=== PATIENT | female | born 1985 | race Caucasian/White ===

== ENCOUNTER 2017-08-13 23:18 | Emergency (ER) | payer BC, OTHER ==
--- NOTE | 2017-08-14 00:57 | ED ---
General Adult HPI - General Chief complaint: Vaginal Bleeding Stated complaint: poss miscarriage Time Seen by Provider: 08/14/17 00:47 Source: patient, RN notes reviewed Mode of arrival: ambulatory Limitations: no limitations - History of Present Illness Initial comments: This is a 32-year-old A2 female who presents to the emergency department with chief complaint of possible miscarriage. Patient states that she is currently 10 weeks . She states that she is from [place] and sees an BILLING MANAGER there. She states that she was visiting some friends earlier today and began spotting. She states that she is now bleeding more. She states that she bled through a panty liner. She also admits to lower abdominal cramping. Denies fevers or chills, nausea or vomiting, diarrhea or constipation , dysuria or hematuria. She states that she did have an ultrasound performed at her BILLING MANAGER's office last Wednesday and everything appeared normal. - Related Data Home Medications Medication Instructions Recorded Confirmed Cephalexin [Keflex] 500 mg PO TID 03/11/14 03/11/14 Triamcinolone 0.1% Cream [Kenalog] 1 applicate TOPICAL DIRECTED PRN 03/11/14 03/11/14 Previous Rx's Medication Instructions Recorded predniSONE 20 mg PO TID #15 tab 03/11/14 Allergies Allergy/AdvReac Type Severity Reaction Status Date / Time No Known Allergies Allergy Verified 08/13/17 23:24 Review of Systems ROS Statement: Those systems with pertinent positive or pertinent negative responses have been documented in the HPI. ROS Other: All systems not noted in ROS Statement are negative. Past Medical History Past Medical History: No Reported History History of Any Multi-Drug Resistant Organisms: None Reported Past Surgical History: Tonsillectomy Past Psychological History: No Psychological Hx Reported Smoking Status: Never smoker Past Alcohol Use History: None Reported Past Drug Use History: None Reported General Exam - General Exam Comments Initial Comments: General: Awake and alert, well-developed; in no apparent distress. HEENT: Head atraumatic, normocephalic. Pupils are equal, round and reactive to light. Extraocular movements intact. Oropharynx moist without erythema or exudate. Neck: Supple. Normal ROM. Cardiovascular: Regular rate and rhythm. No murmurs, rubs or gallops. Chest symmetrical. Respiratory: Lungs clear to auscultation bilaterally. No wheezes, rales or rhonchi. Normal respiratory effort with no use of accessory muscles. Abdomen: Soft, non-distended. Mild tenderness on palpation of lower abdomen. No rigidity, rebound or guarding. Musculoskeletal: Normal ROM, no tenderness bilateral upper and lower extremities. Ambulating normally. Skin: [place], warm and dry without rashes or lesions. Neurological: Alert and oriented x3. CN II-XII grossly intact. Speech is fluent and answers are appropriate. No focal neuro deficits. Psychiatric: Normal mood and affect. No overt signs of depression or anxiety noted. Limitations: no limitations Course Vital Signs 08/13/17 08/14/17 23:22 01:53 Temperature 98.5 F 98.2 F Pulse Rate 79 72 Respiratory 18 16 Rate Blood Pressure 126/76 122/74 O2 Sat by Pulse 100 98 Oximetry Medical Decision Making - Medical Decision Making This is a 32-year-old female who presents to the emergency department with chief complaint of vaginal bleeding. Patient states that she is approximately 10 weeks . CBC and CMP were unremarkable. Ultrasound was obtained and revealed a viable IUP at gestational age of 9 weeks and 3 days. It also revealed evidence for a very small subchorionic hemorrhage. Patient's blood type is A negative. Patient given a dose of Rhogam. Serum hCG is 63,170. Patient will be given a lab slip to have serum hCG repeated in 48 hours. Patient is in agreement with this plan and voices understanding. She is in no acute distress and will be discharged home at this time. All questions answered. - Lab Data Result diagrams: 08/14/17 01:00 08/14/17 01:00 Lab Results 08/14/17 08/14/17 08/14/17 Range/Units 01:00 01:00 01:00 WBC 7.3 (3.8-10.6) k/uL RBC 4.13 (3.80-5.40) m/uL Hgb 12.6 (11.4-16.0) gm/dL Hct 36.4 (34.0-46.0) % MCV 88.1 (80.0-100.0) fL MCH 30.4 (25.0-35.0) pg MCHC 34.5 (31.0-37.0) g/dL RDW 12.6 (11.5-15.5) % Plt Count 239 (150-450) k/uL Neutrophils % 64 % Lymphocytes % 28 % Monocytes % 5 % Eosinophils % 1 % Basophils % 0 % Neutrophils # 4.7 (1.3-7.7) k/uL Lymphocytes # 2.0 (1.0-4.8) k/uL Monocytes # 0.4 (0-1.0) k/uL Eosinophils # 0.1 (0-0.7) k/uL Basophils # 0.0 (0-0.2) k/uL Sodium 138 (137-145) mmol/L Potassium 4.0 (3.5-5.1) mmol/L Chloride 104 (98-107) mmol/L Carbon Dioxide 22 (22-30) mmol/L Anion Gap 12 mmol/L BUN 17 (7-17) mg/dL Creatinine 0.60 (0.52-1.04) mg/dL Est GFR (CKD-EPI)AfAm >90 (>60 ml/min/1.73 sqM) Est GFR (CKD-EPI)NonAf >90 (>60 ml/min/1.73 sqM) Glucose 86 (74-99) mg/dL Calcium 9.3 (8.4-10.2) mg/dL Total Bilirubin 0.2 (0.2-1.3) mg/dL AST 22 (14-36) U/L ALT 39 (9-52) U/L Alkaline Phosphatase 46 (38-126) U/L Total Protein 6.3 (6.3-8.2) g/dL Albumin 4.0 (3.5-5.0) g/dL HCG, Quant 77427.4 mIU/mL Blood Type A Negative Blood Type Recheck No - Radiology Data Radiology results: report reviewed Fetus obstetrical ultrasound impression: The ultrasound gestational age is 9 weeks 3 days. There is evidence for some very small subchorionic hemorrhage. Disposition Clinical Impression: Threatened , Subchorionic bleed Disposition: HOME SELF-CARE Condition: Good Instructions: Subchorionic Hemorrhage (ED), Threatened Miscarriage (ED) Additional Instructions: Please have serum hCG levels repeated in 48 hours. Please follow up with primary care provider within 1-2 days. Return to emergency department if symptoms should worsen or any concerns arise. Is patient prescribed a controlled substance at d/c from ED?: No Referrals: None,Stated [Primary Care Provider] - 1-2 days Time of Disposition: 02:53
[2017-08-14 01:09] LABS: Basophils % (A) 0 %; Eosinophils # (A) 0.1 k/uL (0-0.7); Eosinophils % (A) 1 %; HCT 36.4 % (34.0-46.0); HGB 12.6 gm/dL (11.4-16.0); Lymphocytes % (A) 28 %; MCH 30.4 pg (25.0-35.0); MCHC 34.5 g/dL (31.0-37.0); MCV 88.1 fL (80.0-100.0); Mean Platelet Volume 6.9; Monocytes # (A) 0.4 k/uL (0-1.0); Monocytes % (A) 5 %; Neutrophils # (A) 4.7 k/uL (1.3-7.7); Neutrophils % (A) 64 %; Platelet Count 239 k/uL (150-450); RBC 4.13 m/uL (3.80-5.40); RDW 12.6 % (11.5-15.5); WBC 7.3 k/uL (3.8-10.6)
[2017-08-14 01:21] LABS: ALT 39 U/L (9-52); AST 22 U/L (14-36); Alkaline Phosphatase 46 U/L (38-126); Anion Gap 12 mmol/L; Blood Urea Nitrogen 17 mg/dL (7-17); Calcium 9.3 mg/dL (8.4-10.2); Carbon Dioxide 22 mmol/L (22-30); Chloride 104 mmol/L (98-107); Glucose 86 mg/dL (74-99); Sodium 138 mmol/L (137-145); Total Bilirubin 0.2 mg/dL (0.2-1.3); Total Protein 6.3 g/dL (6.3-8.2)
--- NOTE | 2017-08-14 01:42 | US ---
EXAMINATION TYPE: Transabdominal DATE OF EXAM: 06/22/17 COMPARISON: NONE CLINICAL HISTORY: vag bleed 10 wks . Spotting today increased by the evening, no pain, EXAM PERFORMED: OBTA EXAM MEASUREMENTS: GESTATIONAL AGE / DATING Physician Established: Not yet established Dates by LMP: (10 weeks/1 days) EDC: 03/11/2018 Dates by First Scan: TALENT DEVELOPMENT SPECIALIST Dates by Current Scan for: (9 weeks/3 days) EDC: 03/16/2018 MATERNAL ANATOMY Uterus: 10.8 x 7.9 x 6.9cm Right Ovary: 3.6 x 3.4 x 3.2cm Left Ovary: 2.2 x 1.9 x 2.2cm Post CDS / Adnexa: wnl Presence of free fluid: no Presence of corpus luteal cyst: yes, right ovary = 2.2cm Presence of subchorionic bleed: possible, small = 2.9cm GESTATION / SURVEY CRL: 2.7cm (9 weeks/3 days) MSD: wnl Yolk Sac (normal less than 6mm): 0.4cm Heart Rate: 163 bpm Rhythm: Normal IUP: Viable IUP Date of LMP: 06/04/2017 Beta HcG (if available): pending IMPRESSION: The ultrasound gestational age is 9 weeks 3 days. There is evidence for some very small subchorionic hemorrhage.
[2017-08-14 01:55] VITALS: BP 122/74; PULSE 72; RESP 16; TEMP 98.2
[2017-08-14 02:10] LABS: HCG,Quantitative Serum 63170.4 mIU/mL
[2017-08-14] MEDS ORDERED: Rhogam IMMUNE GLOBULIN 1,500 UNIT/1 ML IM ONE (02:33)
== END 2017-08-14 03:53 | disposition home or self-care (01) ==
LOC: EC 23:18
DX: O20.0 Threatened abortion (principal); Z3A.10 10 weeks gestation of pregnancy
CPT/HCPCS: 36415; 86900; 86901; 80053; 85025; 86850; 84702; 76801; 99284; 96372; J2791

== ENCOUNTER → 2019-02-09 | Outpatient (CLI) | payer OTHER ==
--- NOTE | 2019-02-09 12:56 | US ---
EXAMINATION TYPE: Transabdominal DATE OF EXAM: 02/09/2019 12:27 PM COMPARISON: NONE CLINICAL HISTORY: O46.91 BLEEDING/SPOTTING. Dates. EXAM PERFORMED: Transabdominal (TA) EXAM MEASUREMENTS: GESTATIONAL AGE / DATING Dates by LMP: (7 weeks/4 days) EDC: 09/24/2019 Dates by First Scan: No previous this is first scan Dates by Current Scan for: (7 weeks/4 days) EDC: 09/24/2019 MATERNAL ANATOMY Uterus: 10.0 x 8.0 x 6.4 cm Right Ovary: 3.1 x 1.7 x 1.3 cm Left Ovary: 3.5 x 1.7 x 2.2 cm Post CDS / Adnexa: no free fluid Presence of free fluid: no Presence of corpus luteal cyst: left ovarian lesion visualized = Presence of subchorionic bleed: no GESTATION / SURVEY CRL: 1.4 cm (7 weeks/4 days) MSD: Seen, not measured Yolk Sac (normal less than 6mm): 3.0 mm Heart Rate: 161 bpm Rhythm: Normal IUP: Viable IUP Date of LMP: 12/18/2018, Beta HcG (if available): Not available at this time IMPRESSION: Single live IUP measuring 7 weeks 4 days.
== END | disposition home or self-care (01) ==
LOC: RADUSWWP 11:39
PROVIDERS: ATTEND Obstetrics & Gynecology
DX: O46.91 Antepartum hemorrhage, unspecified, first trimester (principal); Z3A.01 Less than 8 weeks gestation of pregnancy
CPT/HCPCS: 76801

== ENCOUNTER → 2019-05-03 | Outpatient (CLI) | payer OTHER ==
--- NOTE | 2019-05-03 15:07 | US ---
EXAMINATION TYPE: US OB anatomy transabd DATE OF EXAM: 05/03/2019 COMPARISON: HISTORY: O36.62X0 Large for dates Anatomy TECHNIQUE: Transabdominal (TA) EXAM MEASUREMENTS: GESTATIONAL AGE / DATING Physician Established: (19 weeks/3 days) EDC: 09/24/2019 Dates by First Scan: (19 weeks/3 days) EDC: 09/24/2019 Dates by Current Scan for: (19 weeks/1 days) EDC: 09/26/2019 SURVEY IUP: Single PLACENTA: Posterior PREVIA: No previa ANDREW: 13.7 cm Normal CERVICAL LENGTH (transabdominal: norm > 3.0cm): 4.2 cm BIOMETRY LIE: Transverse lie with head maternal Right BPD: 4.2 cm 18 weeks / 6 days HC: 16.2 cm 19 weeks / 0 days AC: 14.2 cm 19 weeks / 4 days FL: 3.2 cm 20 weeks / 0 days ESTIMATED WEIGHT IN GRAMS: 306.7 grams ESTIMATED WEIGHT IN LBS/OZ: 0 lbs. 11 oz. WEIGHT PERCENTAGE BASED ON ESTABLISHED DATE: 60.6 % HC/AC: 1.1 Normal FL/AC: 22.6 HEART RATE: 136 bpm RHYTHM: Normal ANATOMY SEEN (within normal limits): * Lateral Vent (< 1 cm) 0.7 cm * Cisterna Magna (< 1.1 cm) 0.3 cm * Nuchal Fold (< 0.6 cm) 0.4 cm * Cerebellum (varies with age) 1.9 cm Choroid Plexus (bilateral) Midline Falx Cavus Septi Pellucidi Four Chamber Heart Outflow tracts: LVOT/RVOT Stomach Situs Nose / Lips Diaphragm Kidneys (bilateral) Bladder Cord Insert Three Vessel Cord Longitudinal Spine Transverse Spine Arms (bilateral) Legs (bilateral) Feet ANATOMY SEEN (does not appear within normal limits): None ANATOMY NOT SEEN: None Single live IUP measuring 19 weeks 1 day IMPRESSION: Single live intrauterine with a sonographic age of 19 weeks and 1 day and estim ated date of delivery of 09/26/2019, concordant with physician established dates. Unremarkable anatomy scan.
== END | disposition home or self-care (01) ==
LOC: RADUSWWP 12:00
PROVIDERS: ATTEND Obstetrics & Gynecology
DX: O36.62X0 Maternal care for excessive fetal growth, second trimester, not applicable or unspecified (principal); Z3A.19 19 weeks gestation of pregnancy
CPT/HCPCS: 76811

== ENCOUNTER → 2019-05-22 | Outpatient (CLI) | payer OTHER | END | disposition home or self-care (01) | LOC: LABWHC1 10:57 | PROVIDERS: ATTEND Obstetrics & Gynecology | DX: O46.92 Antepartum hemorrhage, unspecified, second trimester (principal); Z3A.00 Weeks of gestation of pregnancy not specified | CPT/HCPCS: 36415; 86850; 86870; 86880; 86886; 86900; 86901 ==

== ENCOUNTER 2019-09-19 05:44 | Inpatient (IN) | payer OTHER ==
[2019-09-19] MEDS ORDERED: CARBOPROST TROMETHAMINE 250 MCG/ML 1 ML AMP IM PRN ×2 (06:03→09:16)
[2019-09-19] MEDS ORDERED: METHYLERGONOVINE 0.2 MG/ML 1 ML AMP IM PRN ×2 (06:03→09:16)
[2019-09-19] MEDS ORDERED: LIDOCAINE 0.5% (PF) 5 MG/ML (50 ML SDV) SQ PRN ×2 (06:03→09:16)
[2019-09-19] MEDS ORDERED: OXYTOCIN 10 UNIT/ML 1 ML VIAL IM PRN ×2 (06:03→09:16)
[2019-09-19] MEDS ORDERED: TERBUTALINE 1 MG/ML VIAL SQ PRN ×2 (06:03→09:16)
[2019-09-19 06:14] LABS: Basophils % (A) 0 %; Eosinophils # (A) 0.1 k/uL (0-0.7); Eosinophils % (A) 1 %; HCT 35.3 % (34.0-46.0); HGB 11.9 gm/dL (11.4-16.0); Lymphocytes # (A) 1.8 k/uL (1.0-4.8); Lymphocytes % (A) 22 %; MCH 31.3 pg (25.0-35.0); MCHC 33.7 g/dL (31.0-37.0); MCV 92.9 fL (80.0-100.0); Mean Platelet Volume 9.1; Monocytes # (A) 0.4 k/uL (0-1.0); Monocytes % (A) 5 %; Neutrophils # (A) 5.7 k/uL (1.3-7.7); Neutrophils % (A) 71 %; Platelet Count 202 k/uL (150-450); Poikilocytosis Slight; RBC 3.81 m/uL (3.80-5.40); RDW 13.5 % (11.5-15.5); WBC 8.1 k/uL (3.8-10.6)
[2019-09-19] MEDS ORDERED: OXYTOCIN 30 UNITS/500 ML NS 30 UNIT in SALINE 1 500ML.BAG IV SCH (06:15)
[2019-09-19] MEDS ORDERED: LACTATED RINGERS 1,000 ML IV SCH (06:15)
--- NOTE | 2019-09-19 06:21 | P.HPOB ---
History of Present Illness H&P Date: 09/19/19 Chief Complaint: Requested induction of labor. This patient is a pleasant 34-year-old 6 para 3 female estimated date of confinement 09/24/2019 estimated gestational age 39-2/7 weeks who presents to labor and delivery for requested induction of labor. Patient's care has been uncomplicated. She did have one episode of spotting at around 25 weeks but this resolved and Rhogam was given at that time. Patient is uncomfortable is requesting induction of labor. Review of Systems Gastrointestinal: Reports heartburn Genitourinary: Reports Menstruation: Reports amenorrhea Past Medical History Past Medical History: No Reported History History of Any Multi-Drug Resistant Organisms: None Reported Past Surgical History: Tonsillectomy Additional Past Surgical History / Comment(s): Breast augmentation Past Anesthesia/Blood Transfusion Reactions: No Reported Reaction Past Psychological History: No Psychological Hx Reported Smoking Status: Never smoker Past Alcohol Use History: None Reported Past Drug Use History: None Reported - Past Family History Father Family Medical History: Diabetes Mellitus Medications and Allergies Home Medications Medication Instructions Recorded Confirmed Type No Known Home Medications 09/19/19 09/19/19 History Allergies Allergy/AdvReac Type Severity Reaction Status Date / Time adhesive tape AdvReac Rash/Hives Verified 09/19/19 06:01 Exam Vital Signs Temp Pulse Resp BP Pulse Ox 09/19/19 06:04 96.8 F L 100 16 120/83 98 Intake and Output 09/18/19 09/18/19 09/19/19 14:59 22:59 06:59 Other: Weight 76.204 kg - OBG Physical Exam Abdomen: bowel sounds normal, no diffuse tenderness, no bruit present, no guarding noted, no hepatomegaly, no splenomegaly, no mass Vulva: both: normal Vagina: normal moisture, no discharge Cervix: no lesion, no discharge Uterus: enlarged (Fundal height 38 cm) Results blood work shows she is A-, rubella immune, RPR is nonreactive, hep atitis B is negative, HIV is nonreactive, she received RhoGAM on July 03, Glucola was 153 with a normal three-hour gtt., growths and anatomy ultrasounds have been normal. Patient received TDap on July 31 Result Diagrams: 09/19/19 06:02 Assessment and Plan Assessment: This is a pleasant 34-year-old 6 para 3 female 39-2/7 weeks gestation admitted to labor and delivery for requested induction of labor. Plan is induction of labor and anticipate vaginal delivery. (1) 39 weeks gestation of Current Visit: Yes Status: Acute Code(s): Z3A.39 - 39 WEEKS GESTATION OF SNOMED Code(s): 20596200 (2) Elective induction of labor planned Current Visit: Yes Status: Acute Code(s): IGL6133 - SNOMED Code(s): 544220840 (3) Rh negative status during Current Visit: Yes Status: Acute Code(s): O26.899 - OTH RELATED CONDITIONS, UNSPECIFIED TRIMESTER; Z67.91 - UNSPECIFIED BLOOD TYPE, RH NEGATIVE SNOMED Code(s): 777484770
[2019-09-19] MEDS ORDERED: ZOLPIDEM 5 MG TAB PO PRN (07:18)
[2019-09-19] MEDS ORDERED: diphenhydrAMINE 25 MG CAP PO PRN (07:18)
[2019-09-19] MEDS ORDERED: WITCH HAZEL 1 EACH MED..PAD TOPICAL PRN (07:18)
[2019-09-19] MEDS ORDERED: BISACODYL 10 MG SUPP RECTAL PRN (07:18)
[2019-09-19] MEDS ORDERED: diphenhydrAMINE 50 MG/ML 1 ML VIAL IVP PRN (07:18)
[2019-09-19] MEDS ORDERED: OXYTOCIN 20 UNITS/1000 ML NS 1,000 ML IV SCH (07:18)
[2019-09-19] MEDS ORDERED: Rhogam IMMUNE GLOBULIN 1,500 UNIT/1 ML IM ONE (07:18)
[2019-09-19] MEDS ORDERED: BENZOCAINE/MENTHOL SPRAY 1 GM/SPRAY AEROSOL TOPICAL PRN (07:18)
[2019-09-19] MEDS ORDERED: HYDROCORTISONE 2.5% RECTAL CREAM 30 GM TUBE RECTAL PRN (07:18)
[2019-09-19] MEDS ORDERED: LANOLIN CREAM 5 GM TUBE TOPICAL PRN (07:18)
[2019-09-19] MEDS ORDERED: SIMETHICONE 80 MG CHEWABLE PO PRN (07:18)
[2019-09-19] MEDS ORDERED: BUTORPHANOL 1 MG/ML 1 ML VIAL IV PRN (09:20)
[2019-09-19] MEDS: LACTATED RINGERS 1,000 ML IV SCH ×3 (10:27→13:51)
[2019-09-19] MEDS ORDERED: ROPIVACAINE 5MG/ML 20ML VIAL ONE (11:27)
[2019-09-19] MEDS ORDERED: PHENYLEPHRINE-0.9% NACL SYG 1 MG/10 ML SYRINGE ONE (11:27)
[2019-09-19] MEDS ORDERED: fentaNYL (PF) 50 MCG/ML 5 ML AMP ONE (11:27)
[2019-09-19] MEDS ORDERED: SODIUM CHLORIDE 0.9% 100 ML BAG ONE (11:27)
[2019-09-19] MEDS ORDERED: ROPIVACAINE 100 MG, fentaNYL (PF) 200 MCG in SODIUM CHLORIDE 0.9% 76 ML EPIDURAL ONE (12:58)
--- NOTE | 2019-09-19 17:17 | P.PROBDLV ---
Vaginal Delivery Note - . Vaginal Delivery Note: Normal vaginal delivery viable male Apgars 9 and 9 delivery time is 1442 hrs. Please see dictated H&P for intimate details of this patient's admission. Brief summary this is a pleasant 34-year-old 6 para 3 female estimated gestational age 39-2/7 weeks gestation who is admitted to labor and delivery for requested induction of labor. On admission patient's 2 cm dilated is thick and has artificial rupture membranes for clear fluid. Labor is induced with Pitocin per protocol. Patient's labor progresses and she does get an epidural at approximately 4 cm dilated. Patient does have some hypotension after the epidural which is relieved with ephedrine. Patient's labor thereafter progresses quickly and she gets to complete. Patient pushes the head to the perineum posterior perineum was supported. Controlled delivery of infant's head over the intact perineum. Straight occiput anterior presentation. Mouth and nares were then bulb suctioned. There is no evidence of a nuchal cord. With gentle downward traction we then have delivery the anterior and posterior shoulder and rest this 's body. Is a vigorous viable male Apgars are 9 and 9 delivery time was 1442 hrs. After delivery of the infant the umbilical cords allowed to quit pulsating is then doubly clamped and cut. It appears to be trivascular. Placenta is then spontaneously delivered intact. Estimated blood loss is 100 mL. Inspection of perineum shows a first-degree perineal laceration repaired with 3-0 Vicryl usual fashion excellent reapproximation is noted. All counts are correct 3. There are no complications. and mother stable delivery room.
[2019-09-19] MEDS: IBUPROFEN 600 MG TAB PO PRN (17:32)
[2019-09-19 20:22] VITALS: RESP 16
[2019-09-19] MEDS: SENNOSIDES-DOCUSATE SODIUM 1 EACH TAB PO SCH (20:22)
[2019-09-20] MEDS: IBUPROFEN 600 MG TAB PO PRN ×3 (00:03→15:33)
[2019-09-20] MEDS: ACETAMINOPHEN TAB 325 MG TAB PO PRN ×2 (03:02→12:12)
--- NOTE | 2019-09-20 06:28 | P.PNOBGVD ---
Subjective - Subjective Patient reports: Reports appetite normal, Reports voiding normally, Reports pain well controlled, Reports ambulating normally : doing well Objective - Latest Vital Signs Latest vital signs: Vital Signs Temp Pulse Resp BP Pulse Ox 09/20/19 00:00 98.9 F 90 16 110/70 09/19/19 20:00 99.0 F 93 16 113/74 97 09/19/19 16:59 97.8 F 84 17 117/67 09/19/19 16:29 88 18 109/67 09/19/19 15:59 98.0 F 81 17 109/73 09/19/19 15:44 98 17 111/72 09/19/19 15:29 75 16 111/70 09/19/19 15:14 88 17 107/66 09/19/19 14:59 97.9 F 82 17 110/64 Intake and Output 09/19/19 09/19/19 09/20/19 14:59 22:59 06:59 Intake Total 3000 Output Total 151 Balance 2849 Intake: IV 3000 Output: Urine 151 Other: # Voids 2 1 - Exam Lungs: bilateral: normal Chest: Normal S1, Normal S2 Extremities: Present: normal Abdomen: Present: normal appearance, soft Uterus: Present: normal, firm Assessment and Plan Assessment: day #1. Patient is resting without complaints wishes to go home. Vital signs are stable she is afebrile. Uterus is firm nontender and she is having normal lochia. My impression this is a normal course. Plan is to continue routine care discharge home later today (1) 39 weeks gestation of Current Visit: Yes Status: Acute Code(s): Z3A.39 - 39 WEEKS GESTATION OF SNOMED Code(s): 33964165 (2) Elective induction of labor planned Current Visit: Yes Status: Acute Code(s): EAD9038 - SNOMED Code(s): 516752319 (3) Rh negative status during Current Visit: Yes Status: Acute Code(s): O26.899 - OTH RELATED CONDITIONS, UNSPECIFIED TRIMESTER; Z67.91 - UNSPECIFIED BLOOD TYPE, RH NEGATIVE SNOMED Code(s): 479716159
--- NOTE | 2019-09-20 06:32 | P.DS ---
Providers Date of admission: 09/19/19 05:44 Expected date of discharge: 09/20/19 Attending physician: Torsten Marino Primary care physician: Stated None - Discharge Diagnosis(es) (1) 39 weeks gestation of Current Visit: Yes Status: Acute (2) Elective induction of labor planned Current Visit: Yes Status: Acute (3) Rh negative status during Current Visit: Yes Status: Acute Hospital Course: Please see dictated H&P for intimate details of this patient's admission. Brief summary is a pleasant 34-year-old 6 para 3 female 39-1/2 weeks gestation admitted to labor and delivery for elective induction of labor. Patient was on have a normal spontaneous vaginal delivery viable male infant. Please dictated delivery note. day 1 patient wishes to go home. Patient's felt be stable for discharge home follow up with me in 6 weeks. Procedures: Induction of labor and normal vaginal delivery Patient Condition at Discharge: Good Plan - Discharge Summary New Discharge Prescriptions: New Ibuprofen [Motrin] 600 mg PO Q6HR PRN #40 tab PRN Reason: Mild Pain Or Fever >= 100.5 Discharge Medication List Ibuprofen [Motrin] 600 mg PO Q6HR PRN #40 tab 09/20/19 [Rx] Follow up Appointment(s)/Referral(s): Torsten Marino MD [STAFF PHYSICIAN] - 10/30/19 10:45 am Patient Instructions/Handouts: Vaginal Delivery (DC) Activity/Diet/Wound Care/Special Instructions: No intercourse or anything per vagina for 6 weeks. Please call for any fever, chills, excessive vaginal bleeding, and/or abdominal pain. Discharge Disposition: HOME SELF-CARE
[2019-09-20] MEDS: SENNOSIDES-DOCUSATE SODIUM 1 EACH TAB PO SCH (07:36)
[2019-09-20 09:34] VITALS: BP 112/73; PULSE 86; TEMP 98.8
== END 2019-09-20 15:45 | disposition home or self-care (01) | DRG 807 ==
LOC: 4FBP 05:44
PROVIDERS: ADMIT Obstetrics & Gynecology; ATTEND Obstetrics & Gynecology
PROC: 3E0234Z Introduction of Serum, Toxoid and Vaccine into Muscle, Percutaneous Approach (ICD-10-PCS; principal; 2019-09-19)
PROC: 10E0XZZ Delivery of Products of Conception, External Approach (ICD-10-PCS; principal; 2019-09-19)
PROC: 0HQ9XZZ Repair Perineum Skin, External Approach (ICD-10-PCS; principal; 2019-09-19)
PROC: 3E0R3BZ Introduction of Anesthetic Agent into Spinal Canal, Percutaneous Approach (ICD-10-PCS; principal; 2019-09-19)
PROC: 00HU33Z Insertion of Infusion Device into Spinal Canal, Percutaneous Approach (ICD-10-PCS; principal; 2019-09-19)
DX: O26.893 Other specified pregnancy related conditions, third trimester (principal); Z37.0 Single live birth; K21.9 Gastro-esophageal reflux disease without esophagitis; O70.0 First degree perineal laceration during delivery; O99.62 Diseases of the digestive system complicating childbirth; Z67.11 Type A blood, Rh negative; Z3A.39 39 weeks gestation of pregnancy; Z90.89 Acquired absence of other organs; Z98.890 Other specified postprocedural states; Z98.82 Breast implant status; Z83.3 Family history of diabetes mellitus
CPT/HCPCS: 85025; 85461; 86850; 86900; 86901

== ENCOUNTER → 2020-01-31 | Outpatient (CLI) | payer OTHER ==
--- NOTE | 2020-02-01 09:47 | USB ---
Reason for exam: clinical finding. History: Pre-pectoral implants in both breasts, May 2018. Physical Findings: Nurse did not find any significant physical abnormalities on exam. US Breast LT Left complete breast ultrasound includes all four quadrants, the retroareolar region and axilla. Finding demonstrates a 1.3 x 1.1 x 0.5cm lymph node at the axilla, prominent but nonenlarged. Underlying breast implant. No abnormality at the 11 o'clock patient detected palpable site. Some folds are noted in the implant here. These results were verbally communicated with the patient and result sheet given to the patient on 01/31/20. ASSESSMENT: Negative, BI-RAD 1 RECOMMENDATION: Routine screening mammogram of both breasts at age 41. (unless clinical indication to start sooner) Manage on a clinical basis with regard to any suspicious palpable area.
== END | disposition home or self-care (01) ==
LOC: RADUSWWP 14:43
PROVIDERS: ATTEND Family Medicine
DX: N63.20 Unspecified lump in the left breast, unspecified quadrant (principal)

== ENCOUNTER 2021-02-07 05:42 | Day surgery (SDC) | payer OTHER ==
--- NOTE | 2021-02-05 07:40 | P.HPOB ---
History of Present Illness H&P Date: 02/05/21 Chief Complaint: Menorrhagia This patient is a pleasant 35-year-old 6 para 4 female who presented to my office with complaints of exceptionally heavy and long periods requesting endometrial ablation. Evaluation has included a ultrasound which was normal. Patient is done childbearing her is had a vasectomy and she is not interested in hormonal control. Review of Systems Menstruation: Reports menses 8 or > days, Reports period heavy Past Medical History Past Medical History: No Reported History History of Any Multi-Drug Resistant Organisms: None Reported Past Surgical History: Tonsillectomy Additional Past Surgical History / Comment(s): Breast augmentation Past Anesthesia/Blood Transfusion Reactions: No Reported Reaction Past Psychological History: No Psychological Hx Reported Past Alcohol Use History: None Reported Past Drug Use History: None Reported - Past Family History Father Family Medical History: Diabetes Mellitus Medications and Allergies Home Medications Medication Instructions Recorded Confirmed Type Ibuprofen [Motrin] 600 mg PO Q6HR PRN #40 tab 09/20/19 Rx Allergies Allergy/AdvReac Type Severity Reaction Status Date / Time adhesive tape AdvReac Rash/Hives Verified 09/19/19 06:01 Exam - OBG Physical Exam Abdomen: bowel sounds normal, no diffuse tenderness, no bruit present, no guarding noted, no hepatomegaly, no splenomegaly, no mass Vulva: both: normal Vagina: normal moisture, no discharge Cervix: no lesion, no discharge Uterus: normal size, normal contour Results Transvaginal ultrasound on December 26 was normal. Assessment and Plan Assessment: This is a pleasant 35-year-old 6 para 4 female with long-standing menorrhagia requesting endometrial ablation. Plan is hysteroscopy, D&C, NovaSure endometrial ablation. Patient I have discussed the surgery and risks and risks of infection, bleeding, possible uterine perforation, and/or thermal injury. All the patient's questions are answered and a written consent is obtained. (1) Menorrhagia Status: Chronic Code(s): N92.0 - EXCESSIVE AND FREQUENT MENSTRUATION WITH REGULAR CYCLE SNOMED Code(s): 001411472
[2021-02-05 13:20] VITALS: BMI 21.9
[~2021-02-07 05:42] MED LIST: Pre Op ABX Message 1 EACH MISC MISCELLANE ONE
[2021-02-07] MEDS ORDERED: SCOPOLAMINE 1.5MG/72HR PATCH TRANSDERM ONE (06:12)
[2021-02-07] MEDS ORDERED: ONDANSETRON 4 MG/2 ML VIAL IVP ONE (06:12)
[2021-02-07] MEDS ORDERED: MIDAZOLAM 2 MG/2 ML VIAL IV PRN (06:12)
[2021-02-07] MEDS ORDERED: DEXAMETHASONE SOD PHOSPHATE 4 MG/ML 1 ML VIAL IV ONE (06:12)
[2021-02-07] MEDS ORDERED: LACTATED RINGERS 1,000 ML IV SCH (06:12)
[2021-02-07] MEDS ORDERED: PROPOFOL 10 MG/ML 20 ML VIAL IV ONE (06:49)
[2021-02-07] MEDS ORDERED: fentaNYL (PF) 50 MCG/ML 2 ML AMP ONE (06:49)
[2021-02-07] MEDS ORDERED: LIDOCAINE 1% INJ 10MG/ML (20 ML MDV) ONE (06:49)
[2021-02-07] MEDS ORDERED: MIDAZOLAM 2 MG/2 ML VIAL ONE (06:49)
[2021-02-07] MEDS ORDERED: HYDROmorphone 0.5 MG/0.5 ML SYRINGE IVP PRN (07:00)
--- NOTE | 2021-02-07 07:24 | P.OP ---
Date of Procedure: 02/07/21 Preoperative Diagnosis: Menorrhagia Postoperative Diagnosis: Same Procedure(s) Performed: #1: Dilation and curettage. #2: NovaSure endometrial ablation Anesthesia: MAC Surgeon: Torsten Marino Estimated Blood Loss (ml): 10 Urine output (ml): 10 Pathology: other (Uterine curettings) Condition: stable Disposition: PACU Indications for Procedure: Please see dictated H&P for intimate details of this patient's admission. Brief summary is a pleasant 35-year-old multipara or is patient who is requesting NovaSure endometrial ablation for menorrhagia. Patient and I have discussed this procedure and risks and risks of infection, bleeding, possible uterine perforation, and/or thermal injury. All the patient's questions are answered written consent obtained. Operative Findings: This patient had a normal size uterus. Description of Procedure: This patient is taken to the operating room where she is laid in the supine position. She subsequently undergoes general anesthesia without incident. With an adequate level of anesthesia and examination was done which shows a mid position uterus of normal size. Weighted speculum was placed posterior vagina. Bladder is drained for 10 mL of clear urine. I then place an Allis clamp and the anterior lip of the cervix. Uterus is sounded to 9 cm. Gentle dilation is then done of the endocervix. At this time the hysteroscope was worked up however it appears equipment is not working properly unable to see through the camera. Since this patient's ultrasounds completely normal delivery is no indication to prolong the case and patient's anesthesia exposure by a waiting for another camera therefore proceed with D&C. I do 4 quadrant curettage for adequate sampling. The NovaSure device is then opened this opens to a length of 6.5 cm. Skin opens up to 4.6 cm. After passing the cavity integrity test is then enabled for 61 seconds. NovaSure device is then removed and appears to be intact. At this point the procedure is ended the Allis clamp and weighted speculum was removed. All counts are correct 3. There are no complications. Patient is awakened from anesthesia and taken recovery room in satisfactory condition.
[2021-02-07 07:37] VITALS: RESP 16; TEMP 97.6
[2021-02-07] MEDS ORDERED: KETOROLAC 30 MG/ML 1 ML VIAL ONE (08:41)
[2021-02-07] MEDS ORDERED: KETOROLAC 15 MG/ML 1 ML VIAL IVP ONE (08:43)
[2021-02-07 09:09] VITALS: BP 112/62; PULSE 80
== END 2021-02-07 09:27 | disposition home or self-care (01) ==
LOC: OR 05:42
PROVIDERS: ATTEND Obstetrics & Gynecology
DX: N92.0 Excessive and frequent menstruation with regular cycle (principal)
CPT/HCPCS: 58120; 81025; 88305; J2250; J1100; J2405; J2001; J3010; J1885; J2704

== ENCOUNTER → 2022-04-11 | Outpatient (CLI) | payer OTHER ==
[2022-04-11 16:13] LABS: Basophils # (A) 0.05 X 10*3/uL (0.00-0.10); Basophils % (A) 0.6 %; Eosinophils # (A) 0.23 X 10*3/uL (0.04-0.35); Eosinophils % (A) 2.7 %; HCT 44.9 % (37.2-46.3); HGB 14.6 g/dL (12.0-15.0); Immature Grans, Automated 0.2 %; Lymphocytes # (A) 2.63 X 10*3/uL (0.90-5.00); Lymphocytes % (A) 30.4 %; MCH 30.4 pg (27.0-32.0); MCHC 32.5 g/dL (32.0-37.0); MCV 93.3 fL (80.0-97.0); Mean Platelet Volume 10.1 fL (9.5-12.2); Monocytes # (A) 0.64 X 10*3/uL (0.20-1.00); Monocytes % (A) 7.4 %; NRBC Per 100 WBC 0 /100 WBCS (0.0-0.0); Neutrophils # (A) 5.08 X 10*3/uL (1.80-7.70); Neutrophils % (A) 58.7 %; Platelet Count 321 X 10*3/uL (140-440); RBC 4.81 X 10*6/uL (4.10-5.20); RDW 12.5 % (11.5-14.5); WBC 8.65 X 10*3/uL (4.50-10.00)
[2022-04-11 16:34] LABS: African American GFR (CKD) 121.5 (60.0-200.0); Albumin 4.4 g/dL (3.8-4.9); BUN/Creat Ratio 18.35 Ratio (12.00-20.00); Blood Urea Nitrogen 13.6 mg/dL (9.0-27.0); Calcium 9.5 mg/dL (8.7-10.3); Carbon Dioxide 26.1 mmol/L (20.0-27.5); Chloride 103 mmol/L (96-109); Glucose 68 mg/dL (70-110); HCG,Quantitative Serum <3.0 (0.0-6.0); LDL Cholesterol,Calculated 145.9 mg/dL (0.0-131.0); Magnesium 2.2 mg/dL (1.5-2.4); Non-African American GFR(CKD) 104.8 (60.0-200.0); Potassium 4.1 mmol/L (3.5-5.5); Sodium 139 mmol/L (135-145)
[2022-04-11 17:10] LABS: Albumin/Globulin Ratio 1.692; Globulin 2.6
[2022-04-11 17:22] LABS: ALT 31 U/L (8-44); AST 20 U/L (13-35); Alkaline Phosphatase 85 U/L (41-126); Bilirubin, Conjugated <0.20 mg/dL (0.20-0.40)
== END | disposition home or self-care (01) ==
LOC: LABWHC1 09:21
PROVIDERS: ATTEND Physician Assistant Medical
DX: L50.1 Idiopathic urticaria (principal)
CPT/HCPCS: 36415; 80061; 80069; 80076; 83735; 84702; 85025

== ENCOUNTER → 2022-04-25 | Outpatient (CLI) | payer OTHER ==
[2022-04-25 16:52] LABS: Basophils # (A) 0.04 X 10*3/uL (0.00-0.10); Basophils % (A) 0.7 %; Eosinophils # (A) 0.12 X 10*3/uL (0.04-0.35); Eosinophils % (A) 2.1 %; HCT 42.9 % (37.2-46.3); HGB 13.9 g/dL (12.0-15.0); Immature Grans, Automated 0.2 %; Lymphocytes # (A) 1.29 X 10*3/uL (0.90-5.00); Lymphocytes % (A) 22.4 %; MCH 30.4 pg (27.0-32.0); MCHC 32.4 g/dL (32.0-37.0); MCV 93.9 fL (80.0-97.0); Mean Platelet Volume 11.6 fL (9.5-12.2); Monocytes # (A) 0.48 X 10*3/uL (0.20-1.00); Monocytes % (A) 8.3 %; NRBC Per 100 WBC 0 /100 WBCS (0.0-0.0); Neutrophils # (A) 3.83 X 10*3/uL (1.80-7.70); Neutrophils % (A) 66.3 %; Platelet Count 217 X 10*3/uL (140-440); RBC 4.57 X 10*6/uL (4.10-5.20); RDW 12.4 % (11.5-14.5); WBC 5.77 X 10*3/uL (4.50-10.00)
[2022-04-25 17:09] LABS: African American GFR (CKD) 125.5 (60.0-200.0); Albumin 4.3 g/dL (3.8-4.9); Albumin/Globulin Ratio 1.954; BUN/Creat Ratio 22.33 Ratio (12.00-20.00); Blood Urea Nitrogen 16.1 mg/dL (9.0-27.0); Calcium 9.3 mg/dL (8.7-10.3); Carbon Dioxide 24.4 mmol/L (20.0-27.5); Chloride 106 mmol/L (96-109); Chol/HDL Ratio 4.45 Ratio; Globulin 2.2; Glucose 91 mg/dL (70-110); Non-African American GFR(CKD) 108.3 (60.0-200.0); Phosphorus 3.1 mg/dL (2.4-5.1); Potassium 4.2 mmol/L (3.5-5.5); Sodium 142 mmol/L (135-145); Total Protein 6.5 g/dL (6.2-8.2); Uric Acid 2.7 mg/dL (2.9-7.7)
[2022-04-25 20:34] LABS: ALT 20 U/L (8-44); AST 19 U/L (13-35); Alkaline Phosphatase 69 U/L (41-126); Bilirubin, Conjugated <0.20 mg/dL (0.20-0.40)
== END | disposition home or self-care (01) ==
LOC: LABWHC1 08:30
PROVIDERS: ATTEND Physician Assistant Medical
DX: L50.1 Idiopathic urticaria (principal)
CPT/HCPCS: 36415; 80061; 80069; 80076; 83735; 84550; 85025

== ENCOUNTER 2024-08-07 10:07 | Emergency (ER) | payer OTHER ==
[2024-08-07 10:20] VITALS: BP 138/95; PULSE 78; RESP 16; TEMP 97.9
== END 2024-08-07 12:38 | disposition left against medical advice (07) ==
LOC: EC 10:07
DX: Z53.21 Procedure and treatment not carried out due to patient leaving prior to being seen by health care provider (principal)
CPT/HCPCS: 93005; 99499